=== PATIENT | male | born 1970 | race Caucasian/White ===

== ENCOUNTER 2016-10-19 15:29 | Inpatient (IN) | payer OTHER ==
[2016-10-19 17:18] VITALS: BMI 31.4
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
[2016-10-19] MEDS ORDERED: chlordiazePOXIDE HCL 25 MG CAPSULE PO PRN (17:47)
[2016-10-19] MEDS ORDERED: ACETAMINOPHEN 325 MG TABLET (FP) PO PRN (17:47)
[2016-10-19] MEDS ORDERED: MENTHOL/PHENOL 1 EACH UD MM PRN (17:47)
[2016-10-19] MEDS ORDERED: LOPERAMIDE HCL 2 MG CAPSULE PO PRN (17:47)
[2016-10-19] MEDS ORDERED: MAG HYDROX/AL HYDROX/SIMETH 30 ML UNIT-DOSE CUP PO PRN (17:47)
[2016-10-19] MEDS ORDERED: MAGNESIUM HYDROX 2400MG/30ML ORAL SUSPENSION 30 ML CUP PO PRN (17:47)
[2016-10-19] MEDS ORDERED: NICOTINE POLACRILEX 2 MG GUM BC PRN (17:47)
[2016-10-19] MEDS ORDERED: chlordiazePOXIDE HCL 25 MG CAPSULE PO ONE (17:47)
[2016-10-19] MEDS ORDERED: MAGNESIUM CITRATE 300 ML BOTTLE PO PRN (17:47)
[2016-10-19] MEDS ORDERED: guaiFENesin/D-METHORPHAN HB 10 ML UNIT-DOSE CUPS PO PRN (17:47)
[2016-10-19] MEDS ORDERED: P-EPHED 60MG/TRIPROLIDI 2.5MG TABLET PO PRN (17:47)
[2016-10-19] MEDS ORDERED: cloNIDine HCL 0.1 MG TABLET PO PRN (17:52)
[2016-10-19] MEDS: IBUPROFEN 400 MG TABLET (FP) PO PRN (21:16)
[2016-10-19] MEDS: hydrOXYzine PAMOATE 50 MG CAPSULE (FP) PO PRN (21:16)
[2016-10-19] MEDS: chlordiazePOXIDE HCL 25 MG CAPSULE PO SCH (22:52)
[2016-10-19] MEDS: THIAMINE HCL 100 MG TABLET (FP) PO SCH (22:53)
[2016-10-19] MEDS: diphenhydrAMINE HCL 50 MG CAPSULE PO PRN (22:53)
[2016-10-19 23:08] LABS: URINE APPEARANCE CLEAR; URINE BILIRUBIN NEGATIVE (NEGATIVE); URINE BLOOD NEGATIVE (NEGATIVE); URINE COLOR LT. YELLOW; URINE GLUCOSE (UA) NEGATIVE (NEGATIVE); URINE KETONE NEGATIVE (NEGATIVE); URINE LEUK ESTERASE NEGATIVE (NEGATIVE); URINE NITRITE NEGATIVE (NEGATIVE); URINE PROTEIN NEGATIVE (NEGATIVE); URINE UROBILINOGEN 0.2 E.U/dl E.U./dl (0.2-1.0)
[2016-10-20] MEDS: BUDESONIDE/FORMETEROL FUMARATE 80/4.5 mcg INHALER IH SCH ×3 (00:02→21:54)
[2016-10-20] MEDS: chlordiazePOXIDE HCL 25 MG CAPSULE PO SCH ×4 (06:15→22:08)
--- NOTE | 2016-10-20 07:58 | CONSULT ---
[facility] Psychiatric Consult - Data Date of interview: 10/20/16 Admission source: [facility] Identifying data: This is 46 yuears old male with history of Bipooar disorder, with no psychiatric hospitalization history intoxicated with: Alcojhol, Cocaine and Nicotine Substance Abuse History: - Smoking Cessation. Smoking history: Current every day smoker. Have you smoked in the past 12 months: Yes. Aproximately how many cigarettes per day: 40. Cigars Per Day: 0. Hx Chewing Tobacco Use: No. Initiated information on smoking cessation: Yes. 'Breaking Loose' booklet given : 10/19/16. - Substance & Tx. History. Hx Alcohol Use: Yes. Hx Substance Use : No. Substance Use Type: Alcohol. Hx Substance Use Treatment: Yes. - Substances Abused. Alcohol. Route: Oral. Frequency: Daily. Amount used: 24 oz x 10-15. Age of first use: 17. Date of Last Use: 10/19/16 Medical History: COPD, Syncopr history, LBP, PPD+ History Psychiatric History: Patient reports history of anxiety and depression, history of Bipolar depression, reports taking prior to admission: Seroquel 100mg poqd. Trazodone 100mg po qhs Physical/Sexual Abuse/Trauma History: Denies Additional Comment: Seroquel 100mg poqd. Trazodone 100mg po qhs Mental Status Exam - Mental Status Exam Alert and Oriented to: Person Cognitive Function: Fair Patient Appearance: Unkempt Mood: Sad Affect: Flat Patient Behavior: Sedated Speech Pattern: Delayed Voice Loudness: Mildly Soft/Quiet Thought Process: Circumstantial Thought Disorder: Being Controlled Hallucinations: Denies Suicidal Ideation: Denies Homicidal Ideation: Denies Insight/Judgement: Fair Sleep: Difficulty falling asleep Appetite: Fair Muscle strength/Tone: Mild Hypotonicity Gait/Station: Shuffling Additional Comments: Seroquel 100mg poqd. Trazodone 100mg po qhs Psychiatric Findings - Problem List ([place] 1, 2,3) (1) Alcohol dependence with uncomplicated withdrawal Current Visit: Yes Status: Acute (2) Nicotine dependence Current Visit: Yes Status: Acute Qualifiers: Nicotine product type: cigarettes Substance use status: uncomplicated Qualified Code(s): F17.210 - Nicotine dependence, cigarettes, uncomplicated (3) Bipolar 1 disorder, mixed, severe Current Visit: Yes Status: Suspected Comment: seroquel (4) Cocaine dependence Current Visit: No Status: Acute (5) Depression Current Visit: No Status: Suspected (6) Drug-induced mood disorder Current Visit: No Status: Suspected - Initial Treatment Plan Initial Treatment Plan: Seroquel 100mg poqd. Trazodone 100mg po qhs
[2016-10-20] MEDS ORDERED: QUEtiapine FUMARATE 50 MG TABLET ONE (10:04)
[2016-10-20 10:18] LABS: MCH 32.4 pg (25.7-33.7); MCHC 33.8 g/dl (32.0-35.9); MEAN PLT VOLUME 8.3 fl (7.5-11.1); PLATELET COUNT 125 K/MM3 (134-434); RDW 12.9 % (11.9-15.9); WHITE BLOOD COUNT 6.1 K/mm3 (4.0-10.0)
--- NOTE | 2016-10-20 10:20 | PN ---
S CIWA - CIWA Score Nausea/Vomitin Muscle Tremors: 3 Anxiety: 3 Agitation: 2 Paroxysmal Sweats: 1-Minimal Palms Moist Orientation: 0-Oriented Tacttile Disturbances: 1-Very Mild Itch/Numbness Auditory Disturbances: 1-Very Mild Visual Disturbances: 1-Very Mild Sensitivity Headache: 2-Mild CIWA-Ar Total Score: 17 BHS Progress Note (SOAP) Subjective: ALERT,IRRITABLE,ANXIOUS,INTERRUPTED SLEEP,TREMOR Objective: 10/20/16 10:16 Vital Signs Temperature 96.3 F L 10/20/16 06:42 Pulse Rate 104 H 10/20/16 06:42 Respiratory Rate 18 10/20/16 06:42 Blood Pressure 122/84 10/20/16 06:42 O2 Sat by Pulse Oximetry (%) EKG NSR NO CHEST PIN,NO SOB,NO DIZZINESS Laboratory Last Values Urine Color Lt. yellow 10/19/16 22:17 Urine Appearance Clear 10/19/16 22:17 Urine pH 7.0 (5.0-8.0) D 10/19/16 22:17 Ur Specific [place] 1.010 (1.001-1.035) 10/19/16 22:17 Urine Protein Negative (NEGATIVE) 10/19/16 22:17 Urine Glucose (UA) Negative (NEGATIVE) 10/19/16 22:17 Urine Ketones Negative (NEGATIVE) 10/19/16 22:17 Urine Blood Negative (NEGATIVE) 10/19/16 22:17 Urine Nitrite Negative (NEGATIVE) 10/19/16 22:17 Urine Bilirubin Negative (NEGATIVE) 10/19/16 22:17 Urine Urobilinogen 0.2 e.u/dl E.U./dl (0.2-1.0) 10/19/16 22:17 Ur Leukocyte Esterase Negative (NEGATIVE) 10/19/16 22:17 LABS PENDING Assessment: 10/20/16 10:19 WITHDRAWAL SYMPTOM Plan: CONTINUING DETOX
[2016-10-20 10:24] LABS: ALBUMIN 3.8 g/dl (3.4-5.0); ANION GAP 7 (8-16); CALCIUM 8.7 mg/dL (8.5-10.1); CO2 27 mmol/L (21-32)
[2016-10-20 10:30] LABS: ALK PHOS 69 U/L (45-117); BILIRUBIN,TOTAL 0.4 mg/dL (0.2-1.0); CREATININE 0.9 mg/dL (0.7-1.3); GLUCOSE,RANDOM 97 mg/dL (74-106); SGOT/AST 36 U/L (15-37); SGPT/ALT 33 U/L (12-78); TOT PROT 6.6 g/dl (6.4-8.2)
[2016-10-20] MEDS: NICOTINE 21 MG/24 HOURS TOPICAL PATCH TD SCH (11:46)
[2016-10-20] MEDS: LIDOCAINE 5% TOPICAL PATCH TP SCH (11:46)
[2016-10-20] MEDS: PRENATAL VITAMINS W/ FOLIC ACID TABLET (FP) PO SCH (11:46)
[2016-10-20] MEDS: QUEtiapine FUMARATE 100 MG TABLET (FP) PO SCH (11:47)
--- NOTE | 2016-10-20 16:32 | EKG ---
Test Reason : Blood Pressure : / mmHG Vent. Rate : 085 BPM Atrial Rate : 085 BPM P-R Int : 152 ms QRS Dur : 088 ms QT Int : 368 ms P-R-T Axes : 066 025 039 degrees QTc Int : 437 ms NORMAL SINUS RHYTHM SEPTAL INFARCT , AGE UNDETERMINED ABNORMAL ECG NO PREVIOUS ECGS AVAILABLE Confirmed by PAOLA ENGLAND, STACY ([id number]) on 10/20/2016 4:32:32 PM Referred By: Confirmed By:STACY GUEVARA MD
[2016-10-20] MEDS: traZODone HCL 100 MG TABLET (FP) PO SCH (21:53)
[2016-10-20] MEDS: THIAMINE HCL 100 MG TABLET (FP) PO SCH (21:56)
[2016-10-20] MEDS: diphenhydrAMINE HCL 50 MG CAPSULE PO PRN (21:56)
[2016-10-21] MEDS: chlordiazePOXIDE HCL 25 MG CAPSULE PO SCH ×3 (06:10→17:21)
[2016-10-21] MEDS: QUEtiapine FUMARATE 100 MG TABLET (FP) PO SCH (10:24)
[2016-10-21] MEDS: PRENATAL VITAMINS W/ FOLIC ACID TABLET (FP) PO SCH (10:24)
[2016-10-21] MEDS: NICOTINE 21 MG/24 HOURS TOPICAL PATCH TD SCH (10:25)
[2016-10-21] MEDS: BUDESONIDE/FORMETEROL FUMARATE 80/4.5 mcg INHALER IH SCH ×2 (10:25→22:32)
[2016-10-21] MEDS: LIDOCAINE 5% TOPICAL PATCH TP SCH (10:25)
--- NOTE | 2016-10-21 12:23 | PN ---
S CIWA - CIWA Score Nausea/Vomitin-No Nausea/No Vomiting Muscle Tremors: 3 Anxiety: 4-Mod. Anxious/Guarded Agitation: 4-Moderately Restless Paroxysmal Sweats: 3 Orientation: 0-Oriented Tacttile Disturbances: 0-None Auditory Disturbances: 0-None Visual Disturbances: 0-None Headache: 0-None Present CIWA-Ar Total Score: 14 BHS Progress Note (SOAP) Subjective: ANXIETY,TREMORS,SWEATING,INTERRUPTED SLEEP,RESTLESS. Objective: 10/21/16 12:22 Vital Signs - 8 hr 10/21/16 10/21/16 06:29 09:37 Temperature 96.7 F L 96.7 F L Pulse Rate 94 H 102 H Respiratory 18 18 Rate Blood Pressure 114/75 108/76 Laboratory Tests 10/19/16 10/20/16 10/20/16 22:17 06:30 06:30 WBC 6.1 RBC 4.35 Hgb 14.1 Hct 41.8 MCV 96.0 MCHC 33.8 RDW 12.9 Plt Count 125 L D MPV 8.3 Sodium 141 Potassium 3.9 Chloride 107 Carbon Dioxide 27 Anion Gap 7 L BUN 10 Creatinine 0.9 Creat Clearance w eGFR > 60 Random Glucose 97 Calcium 8.7 Total Bilirubin 0.4 D AST 36 D ALT 33 D Alkaline Phosphatase 69 Total Protein 6.6 Albumin 3.8 Urine Color Lt. yellow Urine Appearance Clear Urine pH 7.0 D Ur Specific [place] 1.010 Urine Protein Negative Urine Glucose (UA) Negative Urine Ketones Negative Urine Blood Negative Urine Nitrite Negative Urine Bilirubin Negative Urine Urobilinogen 0.2 e.u/dl Ur Leukocyte Esterase Negative RPR Titer 10/20/16 06:30 WBC RBC Hgb Hct MCV MCHC RDW Plt Count MPV Sodium Potassium Chloride Carbon Dioxide Anion Gap BUN Creatinine Creat Clearance w eGFR Random Glucose Calcium Total Bilirubin AST ALT Alkaline Phosphatase Total Protein Albumin Urine Color Urine Appearance Urine pH Ur Specific [place] Urine Protein Urine Glucose (UA) Urine Ketones Urine Blood Urine Nitrite Urine Bilirubin Urine Urobilinogen Ur Leukocyte Esterase RPR Titer Nonreactive LABS NOTED Assessment: 10/21/16 12:22 WITHDRAWAL SX. Plan: CONTINUE DETOX
[2016-10-21] MEDS: IBUPROFEN 400 MG TABLET (FP) PO PRN (20:07)
[2016-10-21] MEDS: traZODone HCL 100 MG TABLET (FP) PO SCH (22:31)
[2016-10-21] MEDS: chlordiazePOXIDE 5 MG CAPSULE PO SCH (22:32)
[2016-10-21] MEDS: THIAMINE HCL 100 MG TABLET (FP) PO SCH (22:32)
[2016-10-22] MEDS: chlordiazePOXIDE 5 MG CAPSULE PO SCH ×3 (06:08→17:25)
[2016-10-22] MEDS: BUDESONIDE/FORMETEROL FUMARATE 80/4.5 mcg INHALER IH SCH ×2 (10:32→22:38)
[2016-10-22] MEDS: QUEtiapine FUMARATE 100 MG TABLET (FP) PO SCH (10:33)
[2016-10-22] MEDS: PRENATAL VITAMINS W/ FOLIC ACID TABLET (FP) PO SCH (10:33)
[2016-10-22] MEDS: NICOTINE 21 MG/24 HOURS TOPICAL PATCH TD SCH (10:34)
[2016-10-22] MEDS: LIDOCAINE 5% TOPICAL PATCH TP SCH (10:34)
--- NOTE | 2016-10-22 11:07 | PN ---
BHS Progress Note (SOAP) Subjective: co poor sleep, gi upset, shakiness Objective: 10/22/16 11:06 Laboratory Tests 10/19/16 10/20/16 10/20/16 22:17 06:30 06:30 WBC 6.1 RBC 4.35 Hgb 14.1 Hct 41.8 MCV 96.0 MCHC 33.8 RDW 12.9 Plt Count 125 L D MPV 8.3 Sodium 141 Potassium 3.9 Chloride 107 Carbon Dioxide 27 Anion Gap 7 L BUN 10 Creatinine 0.9 Creat Clearance w eGFR > 60 Random Glucose 97 Calcium 8.7 Total Bilirubin 0.4 D AST 36 D ALT 33 D Alkaline Phosphatase 69 Total Protein 6.6 Albumin 3.8 Urine Color Lt. yellow Urine Appearance Clear Urine pH 7.0 D Ur Specific [place] 1.010 Urine Protein Negative Urine Glucose (UA) Negative Urine Ketones Negative Urine Blood Negative Urine Nitrite Negative Urine Bilirubin Negative Urine Urobilinogen 0.2 e.u/dl Ur Leukocyte Esterase Negative RPR Titer 10/20/16 06:30 WBC RBC Hgb Hct MCV MCHC RDW Plt Count MPV Sodium Potassium Chloride Carbon Dioxide Anion Gap BUN Creatinine Creat Clearance w eGFR Random Glucose Calcium Total Bilirubin AST ALT Alkaline Phosphatase Total Protein Albumin Urine Color Urine Appearance Urine pH Ur Specific [place] Urine Protein Urine Glucose (UA) Urine Ketones Urine Blood Urine Nitrite Urine Bilirubin Urine Urobilinogen Ur Leukocyte Esterase RPR Titer Nonreactive Vital Signs - 24 hr 10/21/16 10/21/16 10/22/16 13:12 17:32 00:23 Temperature 96.3 F L 97.5 F L Pulse Rate 98 H 65 Respiratory 20 16 18 Rate Blood Pressure 96/63 100/64 10/22/16 10/22/16 06:31 09:32 Temperature 96.8 F L 97.1 F L Pulse Rate 76 91 H Respiratory 16 18 Rate Blood Pressure 109/74 112/83 Assessment: 10/22/16 11:07 ongoing withdrawal Plan: continue detox protocol
[2016-10-22] MEDS: IBUPROFEN 400 MG TABLET (FP) PO PRN (18:46)
[2016-10-22] MEDS: hydrOXYzine PAMOATE 50 MG CAPSULE (FP) PO PRN (19:00)
[2016-10-22] MEDS: chlordiazePOXIDE HCL 10 MG CAPSULE PO SCH (22:36)
[2016-10-22] MEDS: traZODone HCL 100 MG TABLET (FP) PO SCH (22:36)
[2016-10-22] MEDS: THIAMINE HCL 100 MG TABLET (FP) PO SCH (22:36)
[2016-10-22] MEDS: diphenhydrAMINE HCL 50 MG CAPSULE PO PRN (22:37)
[2016-10-23] MEDS: chlordiazePOXIDE HCL 10 MG CAPSULE PO SCH (06:06)
[2016-10-23 09:53] VITALS: BP 112/77; PULSE 75; TEMP 95.4
--- NOTE | 2016-10-23 12:30 | DS ---
[facility] Detox Discharge Summary Admission Date: 10/19/16 Discharge Date: 10/23/16 - History Present History: Alcohol Dependence Pertinent Past History: History of PPD positive - Physical Exam Results Vital Signs: Vital Signs Temperature 95.4 F L 10/23/16 09:49 Pulse Rate 75 10/23/16 09:49 Respiratory Rate 18 10/23/16 09:49 Blood Pressure 112/77 10/23/16 09:49 O2 Sat by Pulse Oximetry (%) Pertinent Admission Physical Exam Findings: Withdrawal symptoms Laboratory Tests 10/19/16 10/20/16 10/20/16 22:17 06:30 06:30 WBC 6.1 RBC 4.35 Hgb 14.1 Hct 41.8 MCV 96.0 MCHC 33.8 RDW 12.9 Plt Count 125 L D MPV 8.3 Sodium 141 Potassium 3.9 Chloride 107 Carbon Dioxide 27 Anion Gap 7 L BUN 10 Creatinine 0.9 Creat Clearance w eGFR > 60 Random Glucose 97 Calcium 8.7 Total Bilirubin 0.4 D AST 36 D ALT 33 D Alkaline Phosphatase 69 Total Protein 6.6 Albumin 3.8 Urine Color Lt. yellow Urine Appearance Clear Urine pH 7.0 D Ur Specific [place] 1.010 Urine Protein Negative Urine Glucose (UA) Negative Urine Ketones Negative Urine Blood Negative Urine Nitrite Negative Urine Bilirubin Negative Urine Urobilinogen 0.2 e.u/dl Ur Leukocyte Esterase Negative RPR Titer 10/20/16 06:30 WBC RBC Hgb Hct MCV MCHC RDW Plt Count MPV Sodium Potassium Chloride Carbon Dioxide Anion Gap BUN Creatinine Creat Clearance w eGFR Random Glucose Calcium Total Bilirubin AST ALT Alkaline Phosphatase Total Protein Albumin Urine Color Urine Appearance Urine pH Ur Specific [place] Urine Protein Urine Glucose (UA) Urine Ketones Urine Blood Urine Nitrite Urine Bilirubin Urine Urobilinogen Ur Leukocyte Esterase RPR Titer Nonreactive Labs noted - Treatment Hospital Course: Detox Protocol Followed, Detoxed Safely, Responded well, Discharged Condition Good - Medication Discharge Medications: Ambulatory Orders Trazodone HCl [Desyrel -] 100 mg PO HS 02/16/15 Quetiapine Fumarate [Seroquel] 100 tab PO HS #30 tablet 08/30/16 Quetiapine Fumarate [Seroquel] 100 mg PO HS #30 tablet 10/20/16 Trazodone HCl [Desyrel -] 100 mg PO HS #30 tablet 10/20/16 - Diagnosis (1) Alcohol dependence with uncomplicated withdrawal Status: Acute (2) Nicotine dependence Status: Chronic Qualifiers: Nicotine product type: cigarettes Substance use status: uncomplicated Qualified Code(s): F17.210 - Nicotine dependence, cigarettes, uncomplicated (3) PPD positive Status: Chronic - AMA Did Patient Leave Against Medical Advice: No
== END 2016-10-23 09:00 | disposition home or self-care (01) | DRG 775 ==
LOC: YASAS 15:29 → Y3N 19:27
PROVIDERS: ADMIT Internal Medicine; ATTEND Internal Medicine
PROC: HZ2ZZZZ Detoxification Services for Substance Abuse Treatment (ICD-10-PCS; principal; 2016-10-19)
DX: F10.230 Alcohol dependence with withdrawal, uncomplicated (principal); F17.210 Nicotine dependence, cigarettes, uncomplicated; F31.63 Bipolar disorder, current episode mixed, severe, without psychotic features; F19.24 Other psychoactive substance dependence with psychoactive substance-induced mood disorder; R76.11 Nonspecific reaction to tuberculin skin test without active tuberculosis
CPT/HCPCS: 36415; 80053; 81003; 85027; 86593; 93005; 93010

== ENCOUNTER 2022-12-26 13:02 | Inpatient (IN) | payer OTHER ==
[~2022-12-26 13:02] MED LIST: LORazepam 2 MG TABLET PO SCH
[2022-12-26 13:53] VITALS: BMI 26.4
[2022-12-26] MEDS ORDERED: guaiFENesin 600 MG TABLET.ER (FP) PO PRN (14:26)
[2022-12-26] MEDS ORDERED: NICOTINE 10 MG CARTRIDGE (INHALER) IH PRN (14:26)
[2022-12-26] MEDS ORDERED: POLYETHYLENE GLYCOL (HEALTHYLAX) 3350 17 GM PACKET PO PRN (14:26)
[2022-12-26] MEDS ORDERED: NALOXONE HCL 0.4 MG/ML VIAL IM PRN (14:26)
[2022-12-26] MEDS ORDERED: LOPERAMIDE HCL 2 MG CAPSULE PO PRN (14:26)
[2022-12-26] MEDS ORDERED: MAG HYDROX/AL HYDROX/SIMETH 30 ML UNIT-DOSE CUP PO PRN (14:26)
[2022-12-26] MEDS ORDERED: MAGNESIUM HYDROX 2400MG/30ML ORAL SUSPENSION 30 ML CUP PO PRN (14:26)
[2022-12-26] MEDS ORDERED: ONDANSETRON *ODT* 4 MG TABLET SL PRN (14:26)
[2022-12-26] MEDS ORDERED: NALOXONE HCL (KLOXXADO) 8 MG SPRAY NS PRN (14:26)
[2022-12-26] MEDS ORDERED: DICYCLOMINE HCL 10 MG CAPSULE PO PRN (14:26)
[2022-12-26] MEDS ORDERED: BENZOCAINE/MENTHOL (CHLORASEPTIC ) LOZENGE MM PRN (14:26)
[2022-12-26] MEDS ORDERED: BENZONATATE 200 MG CAPSULE PO PRN (14:26)
[2022-12-26] MEDS ORDERED: IBUPROFEN 400 MG TABLET (FP) PO PRN (14:26)
[2022-12-26] MEDS ORDERED: ACETAMINOPHEN 325 MG TABLET (FP) PO PRN (14:26)
[2022-12-26] MEDS ORDERED: BISMUTH SUBSALICYLATE 524 MG/30 ML PO PRN (14:26)
[2022-12-26] MEDS ORDERED: IBUPROFEN 600 MG TABLET (FP) PO PRN (14:26)
[2022-12-26] MEDS ORDERED: LORazepam 2 MG TABLET ONE (14:57)
[2022-12-26] MEDS ORDERED: LORazepam 2 MG TABLET PO SCH (15:00)
[2022-12-26] MEDS: PRENATAL VITAMINS W/ FOLIC ACID TABLET (FP) PO SCH (15:02)
[2022-12-26] MEDS ORDERED: LORazepam 2 MG TABLET PO ONE (15:15)
[2022-12-26 17:10] LABS: CALCIUM 8.5 mg/dL (8.5-10.1)
[2022-12-26 17:11] LABS: ALBUMIN 3.2 g/dl (3.4-5.0); BLOOD UREA NITROGEN 4.3 mg/dL (7-18)
[2022-12-26 17:13] LABS: CREATININE 0.8 mg/dL (0.55-1.3)
[2022-12-26 17:15] LABS: BILIRUBIN,TOTAL 0.3 mg/dL (0.2-1); TOT PROT 7.1 g/dl (6.4-8.2)
[2022-12-26 17:22] LABS: HEMATOCRIT 41.5 % (35.4-49); HEMOGLOBIN 14.3 GM/dL (11.7-16.9); MCH 32.4 pg (25.7-33.7); MCHC 34.5 g/dl (32.0-35.9); MEAN CELL VOLUME 93.9 fl (80-96); PLATELET COUNT 275 10^3/uL (134-434); RBC 4.41 M/mm3 (4.00-5.60); RDW 14.6 % (11.9-15.9)
[2022-12-26] MEDS: LORazepam 2 MG TABLET PO SCH (23:27)
[2022-12-26] MEDS: MELATONIN 5 MG TABLETS PO SCH (23:29)
[2022-12-26] MEDS: THIAMINE HCL 100 MG TABLET (FP) PO SCH (23:29)
[2022-12-27] MEDS: LORazepam 2 MG TABLET PO SCH ×4 (05:36→22:23)
[2022-12-27] MEDS: METHOCARBAMOL 500 MG TABLET PO PRN (11:17)
[2022-12-27] MEDS: hydrOXYzine PAMOATE 25 MG CAPSULE (FP) PO PRN (11:17)
[2022-12-27] MEDS: PRENATAL VITAMINS W/ FOLIC ACID TABLET (FP) PO SCH (11:17)
[2022-12-27] MEDS: THIAMINE HCL 100 MG TABLET (FP) PO SCH (22:23)
[2022-12-27] MEDS: MELATONIN 5 MG TABLETS PO SCH (22:42)
[2022-12-28] MEDS: LORazepam 1 MG TABLET PO PRN ×2 (02:01→21:22)
[2022-12-28] MEDS: LORazepam 1 MG TABLET PO SCH ×4 (06:00→23:17)
[2022-12-28] MEDS: hydrOXYzine PAMOATE 25 MG CAPSULE (FP) PO PRN ×2 (10:55→21:58)
[2022-12-28] MEDS: METHOCARBAMOL 500 MG TABLET PO PRN (10:55)
[2022-12-28] MEDS: PRENATAL VITAMINS W/ FOLIC ACID TABLET (FP) PO SCH (10:55)
[2022-12-28 12:24] LABS: SGPT/ALT 127 U/L (13-61)
[2022-12-28 12:25] LABS: SGOT/AST 191 U/L (15-37)
[2022-12-28] MEDS: THIAMINE HCL 100 MG TABLET (FP) PO SCH (21:21)
[2022-12-28] MEDS: MELATONIN 5 MG TABLETS PO SCH (21:59)
[2022-12-29] MEDS ORDERED: LORazepam 0.5 MG TABLET PO PRN
[2022-12-29] MEDS: LORazepam 0.5 MG TABLET PO SCH ×3 (05:58→18:03)
[2022-12-29] MEDS: hydrOXYzine PAMOATE 25 MG CAPSULE (FP) PO PRN (07:34)
[2022-12-29 09:40] VITALS: RESP 16
[2022-12-29] MEDS: PRENATAL VITAMINS W/ FOLIC ACID TABLET (FP) PO SCH (10:05)
[2022-12-29] MEDS: METHOCARBAMOL 500 MG TABLET PO PRN (10:06)
[2022-12-29 17:22] VITALS: BP 92/68; PULSE 82; TEMP 97.8
[2022-12-29] MEDS ORDERED: QUEtiapine FUMARATE 100 MG TABLET (FP) PO PRN (21:00)
[2022-12-30] MEDS ORDERED: LORazepam 0.5 MG TABLET PO ONE (05:00)
== END 2022-12-29 18:30 | disposition home or self-care (01) | DRG 775 ==
LOC: SUATTDRO 13:02 → YASAS 13:02 → Y6N 14:30
PROVIDERS: ADMIT Allergy & Immunology; ATTEND Surgery
PROC: HZ2ZZZZ Detoxification Services for Substance Abuse Treatment (ICD-10-PCS; principal; 2022-12-26)
DX: F10.230 Alcohol dependence with withdrawal, uncomplicated (principal); F13.20 Sedative, hypnotic or anxiolytic dependence, uncomplicated; F17.210 Nicotine dependence, cigarettes, uncomplicated; F19.282 Other psychoactive substance dependence with psychoactive substance-induced sleep disorder; J44.9 Chronic obstructive pulmonary disease, unspecified; M54.50 Low back pain, unspecified; R76.11 Nonspecific reaction to tuberculin skin test without active tuberculosis
CPT/HCPCS: 36415; 71046-TC-FY; 80053; 82140; 82607; 82746; 83036; 84450; 84460; 85027; 86780; 87811

== ENCOUNTER 2023-12-27 12:28 | Inpatient (IN) | payer OTHER ==
[2023-12-27 13:11] VITALS: BMI 25.6
[2023-12-27] MEDS ORDERED: BENZONATATE 200 MG CAPSULE PO PRN (15:32)
[2023-12-27] MEDS ORDERED: ACETAMINOPHEN 325 MG TABLET (FP) PO PRN (15:32)
[2023-12-27] MEDS ORDERED: LOPERAMIDE HCL 2 MG CAPSULE PO PRN (15:32)
[2023-12-27] MEDS ORDERED: NALOXONE HCL (KLOXXADO) 8 MG SPRAY NS PRN (15:32)
[2023-12-27] MEDS ORDERED: guaiFENesin 600 MG TABLET.ER (FP) PO PRN (15:32)
[2023-12-27] MEDS ORDERED: MAGNESIUM HYDROX 2400MG/30ML ORAL SUSPENSION 30 ML CUP PO PRN (15:32)
[2023-12-27] MEDS ORDERED: METHOCARBAMOL 500 MG TABLET PO PRN (15:32)
[2023-12-27] MEDS ORDERED: BISMUTH SUBSALICYLATE 262 MG/15 ML BTL PO PRN (15:32)
[2023-12-27] MEDS ORDERED: ONDANSETRON *ODT* 4 MG TABLET SL PRN (15:32)
[2023-12-27] MEDS ORDERED: MAG HYDROX/AL HYDROX/SIMETH 30 ML UNIT-DOSE CUP PO PRN (15:32)
[2023-12-27] MEDS ORDERED: NALOXONE HCL 0.4 MG/ML VIAL IM PRN (15:32)
[2023-12-27] MEDS ORDERED: BENZOCAINE/MENTHOL (CHLORASEPTIC ) LOZENGE MM PRN (15:32)
[2023-12-27] MEDS ORDERED: DICYCLOMINE HCL 10 MG CAPSULE PO PRN (15:32)
[2023-12-27] MEDS ORDERED: IBUPROFEN 600 MG TABLET (FP) PO PRN (15:32)
[2023-12-27] MEDS ORDERED: IBUPROFEN 400 MG TABLET (FP) PO PRN (15:32)
[2023-12-27] MEDS ORDERED: hydrOXYzine PAMOATE 25 MG CAPSULE (FP) PO PRN (15:32)
[2023-12-27] MEDS ORDERED: POLYETHYLENE GLYCOL (HEALTHYLAX) 3350 17 GM PACKET PO PRN (15:32)
[2023-12-27] MEDS ORDERED: diazePAM 5 MG TABLET PO PRN (15:32)
[2023-12-27] MEDS ORDERED: diazePAM 5 MG TABLET ONE (16:39)
[2023-12-27] MEDS: diazePAM 5 MG TABLET PO SCH (16:42)
[2023-12-27] MEDS: MELATONIN 5 MG TABLETS PO SCH (22:27)
[2023-12-27] MEDS: THIAMINE HCL 100 MG TABLET (FP) PO SCH (22:27)
[2023-12-28] MEDS: PRENATAL VITAMINS W/ FOLIC ACID TABLET (FP) PO SCH (10:53)
[2023-12-28 12:00] LABS: HEMATOCRIT 44.4 % (35.4-49); HEMOGLOBIN 14.7 GM/dL (11.7-16.9); MCH 32.4 pg (25.7-33.7); MCHC 33.1 g/dl (32.0-35.9); MEAN CELL VOLUME 97.7 fl (80-96); MEAN PLT VOLUME 7.7 fl (7.5-11.1); PLATELET COUNT 187 10^3/uL (134-434); RBC 4.55 M/mm3 (4.00-5.60); RDW 13.3 % (11.9-15.9); WHITE BLOOD COUNT 12.9 K/mm3 (4.0-10.0)
[2023-12-28 12:02] LABS: CHLORIDE 102 mmol/L (98-107); POTASSIUM 4.3 mmol/L (3.5-5.1); SODIUM 141 mmol/L (136-145)
[2023-12-28 12:04] LABS: CALCIUM 9.7 mg/dL (8.5-10.1)
[2023-12-28 12:05] LABS: ALBUMIN 3.9 g/dl (3.4-5.0); ANION GAP 11 mmol/L (4-13); BLOOD UREA NITROGEN 13.1 mg/dL (7-18); CO2 28 mmol/L (21-32); GLUCOSE,RANDOM 97 mg/dL (74-106)
[2023-12-28 12:08] LABS: CREATININE 0.8 mg/dL (0.55-1.3); SGOT/AST 117 U/L (15-37); SGPT/ALT 85 U/L (13-61)
[2023-12-28 12:10] LABS: BILIRUBIN,TOTAL 0.7 mg/dL (0.2-1); TOT PROT 7.4 g/dl (6.4-8.2)
[2023-12-28 12:11] LABS: ALK PHOS 60 U/L (45-117)
[2023-12-28] MEDS: diazePAM 5 MG TABLET PO SCH (17:50)
[2023-12-29] MEDS: diazePAM 5 MG TABLET PO SCH (06:08)
[2023-12-29 09:33] VITALS: BP 123/76; PULSE 64; RESP 16; TEMP 97.3
[2023-12-30] MEDS ORDERED: diazePAM 5 MG TABLET PO SCH (06:00)
[2023-12-31] MEDS ORDERED: diazePAM 5 MG TABLET PO ONE (06:00)
== END 2023-12-29 09:21 | disposition home or self-care (01) | DRG 774 ==
LOC: YASAS 12:28 → Y6N 16:17
PROVIDERS: ADMIT Allergy & Immunology; ATTEND Surgery
PROC: HZ2ZZZZ Detoxification Services for Substance Abuse Treatment (ICD-10-PCS; principal; 2023-12-27)
DX: F10.230 Alcohol dependence with withdrawal, uncomplicated (principal); F14.20 Cocaine dependence, uncomplicated; F17.210 Nicotine dependence, cigarettes, uncomplicated; F19.282 Other psychoactive substance dependence with psychoactive substance-induced sleep disorder; F31.9 Bipolar disorder, unspecified; F19.24 Other psychoactive substance dependence with psychoactive substance-induced mood disorder; J44.9 Chronic obstructive pulmonary disease, unspecified; M54.50 Low back pain, unspecified; G89.29 Other chronic pain; Z86.11 Personal history of tuberculosis
CPT/HCPCS: 36415; 80053; 80305; 80307; 85027; 86780; 93005; 93010

== ENCOUNTER 2024-10-31 14:46 | Inpatient (IN) | payer OTHER ==
[2024-10-31 16:27] VITALS: BMI 23.7
[2024-10-31] MEDS ORDERED: ACETAMINOPHEN 325 MG TABLET (FP) PO PRN (17:17)
[2024-10-31] MEDS ORDERED: BENZONATATE 200 MG CAPSULE PO PRN (17:17)
[2024-10-31] MEDS ORDERED: DICYCLOMINE HCL 10 MG CAPSULE PO PRN (17:17)
[2024-10-31] MEDS ORDERED: IBUPROFEN 600 MG TABLET (FP) PO PRN (17:17)
[2024-10-31] MEDS ORDERED: BENZOCAINE/MENTHOL (CHLORASEPTIC ) LOZENGE MM PRN (17:17)
[2024-10-31] MEDS ORDERED: hydrOXYzine PAMOATE 25 MG CAPSULE (FP) PO PRN (17:17)
[2024-10-31] MEDS ORDERED: LOPERAMIDE HCL 2 MG CAPSULE PO PRN (17:17)
[2024-10-31] MEDS ORDERED: POLYETHYLENE GLYCOL (HEALTHYLAX) 3350 17 GM PACKET PO PRN (17:17)
[2024-10-31] MEDS ORDERED: BISMUTH SUBSALICYLATE 524 MG/30 ML PO PRN (17:17)
[2024-10-31] MEDS ORDERED: NALOXONE (NARCAN) HCL 4 MG/0.1 ML SPRAY NS PRN (17:17)
[2024-10-31] MEDS ORDERED: IBUPROFEN 400 MG TABLET (FP) PO PRN (17:17)
[2024-10-31] MEDS ORDERED: ONDANSETRON *ODT* 4 MG TABLET SL PRN (17:17)
[2024-10-31] MEDS ORDERED: guaiFENesin 600 MG TABLET.ER (FP) PO PRN (17:17)
[2024-10-31] MEDS ORDERED: MAGNESIUM HYDROX 2400MG/30ML ORAL SUSPENSION 30 ML CUP PO PRN (17:17)
[2024-10-31] MEDS ORDERED: MAG HYDROX/AL HYDROX/SIMETH 30 ML UNIT-DOSE CUP PO PRN (17:17)
[2024-10-31] MEDS ORDERED: chlordiazePOXIDE HCL 25 MG CAPSULE ONE (19:04)
[2024-10-31] MEDS: chlordiazePOXIDE HCL 25 MG CAPSULE PO PRN (19:06)
[2024-10-31] MEDS: THIAMINE 100 MG TABLET PO SCH (22:23)
[2024-10-31] MEDS: MELATONIN 5 MG TABLETS PO SCH (22:23)
[2024-10-31] MEDS: chlordiazePOXIDE HCL 25 MG CAPSULE PO SCH (22:24)
[2024-10-31] MEDS: METHOCARBAMOL 500 MG TABLET PO PRN (22:24)
[2024-11-01 05:57] VITALS: RESP 16
[2024-11-01] MEDS: PRENATAL VITAMINS W/ FOLIC ACID TABLET (FP) PO SCH (10:17)
[2024-11-01 12:41] LABS: HEMATOCRIT 40.9 % (35.4-49); HEMOGLOBIN 13.5 GM/dL (11.7-16.9); MCH 32.6 pg (25.7-33.7); MCHC 33.1 g/dl (32.0-35.9); MEAN CELL VOLUME 98.5 fl (80-96); MEAN PLT VOLUME 8.2 fl (7.5-11.1); PLATELET COUNT 137 10^3/uL (134-434); RBC 4.15 M/mm3 (4.00-5.60); RDW 14.4 % (11.9-15.9)
[2024-11-01 12:46] LABS: CHLORIDE 102 mmol/L (98-107); POTASSIUM 3.5 mmol/L (3.5-5.1); SODIUM 136 mmol/L (136-145)
[2024-11-01 12:50] LABS: ALBUMIN 3.3 g/dl (3.4-5.0); ANION GAP 7 mmol/L (4-13); BLOOD UREA NITROGEN 7.3 mg/dL (7-18); CO2 26 mmol/L (21-32); GLUCOSE,RANDOM 90 mg/dL (74-106)
[2024-11-01 12:51] LABS: SGPT/ALT 35 U/L (13-61)
[2024-11-01 12:53] LABS: BILIRUBIN,TOTAL 0.4 mg/dL (0.2-1); CREATININE 0.8 mg/dL (0.55-1.3); SGOT/AST 61 U/L (15-37); TOT PROT 6.6 g/dl (6.4-8.2)
[2024-11-01 12:54] LABS: ALK PHOS 56 U/L (45-117)
[2024-11-01 13:15] VITALS: TEMP 98
[2024-11-01 15:02] VITALS: BP 94/62; PULSE 98
[2024-11-01] MEDS ORDERED: QUEtiapine FUMARATE 100 MG TABLET (FP) PO SCH (22:00)
[2024-11-02] MEDS ORDERED: chlordiazePOXIDE HCL 25 MG CAPSULE PO SCH (05:00)
[2024-11-03] MEDS ORDERED: chlordiazePOXIDE HCL 10 MG CAPSULE PO PRN
[2024-11-03] MEDS ORDERED: chlordiazePOXIDE HCL 10 MG CAPSULE PO SCH (05:00)
[2024-11-04] MEDS ORDERED: chlordiazePOXIDE HCL 10 MG CAPSULE PO SCH (05:00)
[2024-11-05] MEDS ORDERED: chlordiazePOXIDE HCL 10 MG CAPSULE PO ONE (05:00)
== END 2024-11-01 17:05 | disposition left against medical advice (07) | DRG 770 ==
LOC: YASAS 14:46 → Y3N 19:02
PROVIDERS: ADMIT Allergy & Immunology; ATTEND Allergy & Immunology
PROC: HZ2ZZZZ Detoxification Services for Substance Abuse Treatment (ICD-10-PCS; principal; 2024-10-31)
DX: F10.230 Alcohol dependence with withdrawal, uncomplicated (principal); F14.20 Cocaine dependence, uncomplicated; F17.210 Nicotine dependence, cigarettes, uncomplicated; F31.9 Bipolar disorder, unspecified; F19.24 Other psychoactive substance dependence with psychoactive substance-induced mood disorder; G47.00 Insomnia, unspecified; J44.9 Chronic obstructive pulmonary disease, unspecified; R76.11 Nonspecific reaction to tuberculin skin test without active tuberculosis
CPT/HCPCS: 36415; 80053; 80305; 80307; 85027; 86780; 93005; 93010